=== PATIENT | female | born 1945 | race Caucasian/White ===

== ENCOUNTER → 2017-03-27 | Outpatient (CLI) | payer OTHER | LOC: CIMAGING 13:20 | DX: T84.296A Other mechanical complication of internal fixation device of vertebrae, initial encounter (principal); S12.201A Unspecified nondisplaced fracture of third cervical vertebra, initial encounter for closed fracture; Z98.1 Arthrodesis status | CPT/HCPCS: 72125-PO ==

== ENCOUNTER → 2017-09-06 | Outpatient (CLI) | payer OTHER | LOC: FIMAGING 15:51 | PROVIDERS: ATTEND Family Medicine | DX: R05 Cough (principal); R60.0 Localized edema ==

== ENCOUNTER → 2017-09-12 | Outpatient (CLI) | payer OTHER | LOC: CIMAGING 07:06 | PROVIDERS: ATTEND Family Medicine | DX: N85.8 Other specified noninflammatory disorders of uterus (principal); K82.9 Disease of gallbladder, unspecified; N28.1 Cyst of kidney, acquired; R05 Cough | CPT/HCPCS: 76700-PO; 76856-PO ==